=== PATIENT | female | born 1985 | race Caucasian/White ===

== ENCOUNTER 2016-06-18 03:13 | Emergency (ER) | payer OTHER ==
[~2016-06-18] VITALS: Ht 154.9 cm; Wt 64.1 kg
[~2016-06-18 03:13] MED LIST: ENDOCET 5-3251 EACH PO; MOTRIN800 MG PO; PREDNISONE20 MG PO; PREFERA-OB P1 TABLET PO; TEARS NATURALE-15 ML RIGHT EYE; VALTREX1000 MG PO
[2016-06-18 03:47] LABS: HEMATOCRIT 40.6 % (36.0-46.0); MCH 30.1 PG (29.0-34.0); MCV 88.6 FL (83-99); MEAN PLAT.VOLUME 10.8 uM^3 (9.5-12.4); PLATELET COUNT 248 K/uL (156-360); RBC DIS.WIDTH-CV 12.5 % (11.8-14.6); RBC DIS.WIDTH-SD 40.2 % (39-53); RED BLOOD COUNT 4.58 M/uL (3.80-5.20); WHITE BLOOD COUNT 6.9 K/uL (4.1-10.2)
[2016-06-18 03:56] LABS: CHLORIDE 105 mEq/L (99-109); POTASSIUM 3.6 mEq/L (3.7-5.4); SODIUM 141 mEq/L (136-147)
[2016-06-18 03:59] LABS: GLUCOSE 102 mg/dL (70-99)
[2016-06-18 04:00] LABS: ANION GAP 12 MEQ/L (2-14)
[2016-06-18 04:01] LABS: TOTAL BILIRUBIN 0.9 mg/dL (0.0-1.0)
[2016-06-18 04:02] LABS: ALKALINE PHOSPHATASE 42 IU/L (3-129); GFR ESTIMATE (CALCULATED) > 59 mL/min/
[2016-06-18 04:03] LABS: UREA NITROGEN (BUN) 15 mg/dL (9-23)
[2016-06-18 04:11] LABS: QUANTITATIVE HCG < 4.0 MIU/ML
[2016-06-18 05:20] LABS: ADD MIUA? NO; BILIRUBIN NEGATIVE; BLOOD NEGATIVE; COLOR STRAW ((YELLOW)); GLUCOSE (STRIP) NEGATIVE; KETONES 5; LEUKOCYTES NEGATIVE; NITRITE NEGATIVE; PROTEIN (STRIP) NEGATIVE; SPECIFIC GRAVITY 1.006 (1.000-1.030); UCUL ADDED? NO; UROBILINOGEN 0.2 MG/DL (0.2-1.0)
[2016-06-18] MEDS ORDERED: PYRIDIUM100 MG PO (06:35)
[2016-06-18] MEDS ORDERED: BENTYL20 MG PO (06:35)
[2016-06-18 07:03] VITALS: BP 118/74
== END 2016-06-18 07:04 | disposition home or self-care (01) ==
LOC: EME 03:13
DX: R10.84 Generalized abdominal pain (principal); R11.0 Nausea; R30.0 Dysuria; R34 Anuria and oliguria
CPT/HCPCS: 80053; 81003; 84702; 85027; 99281; 99284

== ENCOUNTER 2017-10-17 05:38 | Emergency (ER) | payer OTHER ==
[~2017-10-17] VITALS: Ht 154.9 cm; Wt 68.4 kg
[~2017-10-17 05:38] MED LIST changes: +BENTYL20 MG PO; +PYRIDIUM100 MG PO
[2017-10-17 06:40] LABS: HEMATOCRIT 41.6 % (36.0-46.0); HEMOGLOBIN 14.2 G/DL (11.9-15.5); MCH 30.1 PG (29.0-34.0); MCHC 34.1 G/DL (30.0-36.0); MCV 88.3 FL (83-99); PLATELET COUNT 256 K/uL (156-360); RBC DIS.WIDTH-CV 12.2 % (11.8-14.6); RBC DIS.WIDTH-SD 39.9 % (39-53); RED BLOOD COUNT 4.71 M/uL (3.80-5.20)
[2017-10-17 06:49] LABS: APPEARANCE CLEAR ((CLEAR)); BILIRUBIN NEGATIVE; BLOOD NEGATIVE; COLOR STRAW ((YELLOW)); GLUCOSE (STRIP) NEGATIVE; KETONES NEGATIVE; LEUKOCYTES NEGATIVE; NITRITE NEGATIVE; PROTEIN (STRIP) NEGATIVE; SPECIFIC GRAVITY 1.005 (1.000-1.030); UCUL ADDED? NO; UROBILINOGEN 0.2 MG/DL (0.2-1.0)
[2017-10-17 07:10] LABS: QUANTITATIVE HCG < 4.0 MIU/ML
[2017-10-17 07:39] LABS: ALBUMIN 4.7 G/DL (3.2-4.8); ALKALINE PHOSPHATASE 59 IU/L (3-129); ALT (GPT) 26 IU/L (3-49); AST (GOT) 18 IU/L (2-34); CHLORIDE 105 MEQ/L (99-109); CREATININE 0.6 MG/DL (0.6-1.3); GFR ESTIMATE (CALCULATED) > 59 mL/min/; GLUCOSE 102 mg/dL (70-99); LIPASE 12 U/L (1.0-51.0); POTASSIUM 3.5 MEQ/L (3.7-5.4); SODIUM 140 MEQ/L (136-147); TOTAL BILIRUBIN 0.7 MG/DL (0.0-1.0); TOTAL PROTEIN 7.4 G/DL (6.4-8.3); UREA NITROGEN (BUN) 15 mg/dL (9-23)
[2017-10-17] MEDS ORDERED: ZOFRAN4 MG PO (08:34)
[2017-10-17] MEDS ORDERED: MOTRIN600 MG PO (08:34)
[2017-10-17] MEDS ORDERED: BENTYL20 MG PO (08:34)
[2017-10-17 08:59] VITALS: BP 142/88
== END 2017-10-17 08:59 | disposition home or self-care (01) ==
LOC: EME 05:38
PROVIDERS: Nurse Practitioner Family
DX: R10.84 Generalized abdominal pain (principal); R11.0 Nausea; Z88.6 Allergy status to analgesic agent
CPT/HCPCS: 74177; 80053; 81003; 83690; 84702; 85027; 99281; 99284; J0500; J1885; J2405